=== PATIENT | male | born 1980 | race Hispanic/Latino ===

== ENCOUNTER 2024-03-14 18:25 | Emergency (ER) | payer MEDICARE, OTHER, SELFPAY ==
[2024-03-14 18:35] VITALS: BP 133/93
[2024-03-14 18:56] LABS: % Basophils 0.4 % (0-2); % Eosinophils 2.3 % (0-6); % Immature Granulocytes 0.5 % (0-0.5); % Monocytes 5.7 % (1.7-9.3); % Neutrophils 76.1 % (42.2-75.2); Absolute Basophils 0.1 10^3/uL (0-0.2); Absolute Eosinophils 0.4 10^3/uL (0-0.7); Absolute Immature Granulocytes 0.1 10^3/uL (0-0.05); Absolute Lymphocytes 2.4 10^3/uL (1.2-3.4); Absolute Monocytes 0.9 10^3/uL (0.1-0.6); Hematocrit 44.8 % (39.0-52.0); Hemoglobin 14.9 g/dL (13.0-18.0); Mean Corp Hgb Conc. 33.3 g/dL (33.0-37.0); Mean Corpuscular Hgb 25.7 pg (27.0-31.0); Mean Corpuscular Volume 77.2 fL (80.0-94.0); Mean Platelet Volume 8.7 fL (7.4-10.4); Nucleated Red Blood Cells % 0 % (-); Platelet Count 360 10^3/uL (130-400); Red Cell Dist. Width 14.1 % (11.5-14.5); White Blood Cell Count 15.7 10^3/uL (4.8-10.8)
[2024-03-14 19:21] LABS: ALT (SGPT) 31 U/L (0-50); AST (SGOT) 39 U/L (17-59); Albumin 4.4 g/dl (3.5-5.0); Alkaline Phosphatase 98 U/L (38-126); Blood Urea Nitrogen 14 mg/dl (9-20); Calcium 9.5 mg/dl (8.4-10.2); Carbon Dioxide 22 mmol/L (22-30); Chloride 103 mmol/L (98-107); Glucose 142 mg/dl (70-99); Lipase 141 U/L (23-300); Potassium 5.4 mmol/L (3.5-5.1); Sodium 140 mmol/L (135-145); Total Bilirubin 0.6 mg/dl (0.2-1.3); eGFR > 60.00
--- NOTE | 2024-03-14 20:02 | ED.GENMED ---
History of Present Illness
General
Chief Complaint: Abdominal Pain
Source: patient
Exam Limitations: none
Time Seen by Provider: 03/14/24 19:51
History of Present Illness
History of Present Illness:
See MDM
Past History
Past History
ED Past Medical History: Hypercholesterolemia and Other (Scleroderma )
ED Past Surgical History: Other (Left Lung transplant 2018)
Social History
Tobacco: Non-smoker
Alcohol: None
Phy Exam
Physical Exam
Physical Exam:
See MDM
Course
Orders/Labs/Results
Orders:
Orders
03/14/24 18:45
CT Abd/pel Without Iv Or Oral Urgent
Comment:
Reason For Exam: right flakn pain
CR Chest - 2 Views Urgent
Comment:
Reason For Exam: pain
03/14/24 18:47
CMP [Comprehensive Metabolic Panel] Urgent
Complete Blood Count/With Diff Urgent
Lipase Urgent
03/14/24 19:57
HYDROmorphone [Dilaudid] 1 mg IV NOW STA
Ondansetron Injectable [Zofran] 4 mg IV NOW STA
03/14/24 20:35
US Abdomen Limited Urgent
Comment:
Reason For Exam: RUQ pain
03/14/24 21:29
Amoxicillin 875 mg/Clav 125 mg [Augmentin 875 mg/125 mg] 1 tablet PO NOW STA
Doxycycline [Vibramycin] 100 mg PO NOW STA
Oxycodone/Acetaminophen [Percocet 5/325] 1 tablet PO NOW STA
Abnormal Lab Results
03/14/24
18:47
WBC 15.7 H 10^3/uL
(4.8-10.8)
MCV 77.2 L fL
(80.0-94.0)
MCH 25.7 L pg
(27.0-31.0)
Abs Immat Gran (auto) 0.1 H 10^3/uL
(0-0.05)
Absolute Neuts (auto) 12.0 H 10^3/uL
(1.4-6.5)
Absolute Monos (auto) 0.9 H 10^3/uL
(0.1-0.6)
Neutrophils % 76.1 H %
(42.2-75.2)
Lymphocytes % 15.0 L %
(20.5-51.1)
Potassium 5.4 H mmol/L
(3.5-5.1)
Glucose 142 H mg/dl
(70-99)
03/14/24 18:47
03/14/24 18:47
Vital Signs
Initial and Last Documented VS:
Initial Vital Signs
Temp Pulse Resp BP Pulse Ox
98.8 F 63 18 133/93 92
03/14/24 18:35 03/14/24 18:35 03/14/24 18:35 03/14/24 18:35 03/14/24 18:35
Last Documented Vital Signs
Temp Pulse Resp BP Pulse Ox
98.8 F 63 18 133/93 92
03/14/24 18:35 03/14/24 18:35 03/14/24 18:35 03/14/24 18:35 03/14/24 18:35
MDM/Problems Addressed
Differential Diagnosis Includes:
HPI and MDM Narrative:
43-year-old male presenting with right upper quadrant and right flank pain since the past 3 hours or so. This is associated with nausea and vomiting. Patient has a history of scleroderma and had a lung transplant in 2018. He is currently
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 Blood work is done prior to my evaluation. Patient found to be hyperglycemic and have leukocytosis. This is likely related to chronic steroids. On exam,
he does have right upper quadrant abdominal pain. CT was performed prior to my evaluation looking for evidence of kidney stone.
Physical exam
General: Uncomfortable
HEENT: protecting airway
Neck: appears supple
CV: No evidence of cyanosis
Resp: No accessory muscle use
Abd: Non-distended. Right upper quadrant tenderness
Extremities: No deformities
Neuro: alert
Psych: Normal affect
Skin: Intact
Problems Addressed including Acute and Chronic Conditions affecting care:
1. Abdominal pain
Acuity: acute
Prognosis: stable
Details: CT was additionally performed. If negative, will consider right upper quadrant ultrasound
2. Pneumonia
Acuity: acute
Prognosis: stable
Details: Potentially pneumonia versus pulmonary fibrosis. It is in the right lung which is the nontransplant lung. Will start antibiotics
Updates
CT consistent with right-sided kidney stone which explains his pain. Ultrasound was still performed to rule out any evidence of cholecystitis which was negative. Patient complains of worsening shortness of breath. Although chronic, chest x-ray
was performed. It appears to show a right sided moderate pneumonia but this could be in the setting of his pulmonary fibrosis. There are no prior to compare to. I discussed the case with his publications manager Dr. Weber. Given that is likely
chronic and in the nontransplant lung, it was shared decision making to start antibiotics and discharge.
Differential Diagnosis (but not limited to): Acute cholecystitis, symptomatic cholelithiasis, kidney stone, appendicitis
Testing considered: Urinalysis
Drug therapy (if applicable): OTC meds, please see d/c instruction regarding Rx drugs
Amount and/or Complexity of Data Reviewed
Clinical info obtained from: Patient
External data reviewed: N/A
Labs I independently reviewed (but not limited to): Leukocytosis and hyperglycemia
Radiology: X-ray independently reviewed: Chest x-ray shows atelectasis. Possible right-sided pneumonia
The CT scan was personally and independently reviewed. In addition, official CT report reviewed.
Pulse Ox: not hypoxic
EKG independently reviewed: N/A
Tower Erector: N/A
Critical Care: N/A
Risk of Complication:
Social Determinants of health: Good social support
Discussed with other providers: N/A
Escalation of Care includes Admit/Obs: After being observed in the Emergency Department, pt stable for discharge.
Occasional wrong word or 'sound a like' substitutions may have occurred due to the inherent limitations of voice recognition software. Read the chart carefully and recognize, using context, where substitutions have occurred.
*Critical Care Note
Total Time (30-74mins, 75-104mins- exclusive of procedures): Not Applicable
ED Attending Note
-
Portions of this chart may have been created with voice recognition software.� Occasional wrong word or��sound alike� substitutions may have occurred due to the inherent limitations of voice recognition software.
Discharge Plan
Departure
Patient Disposition: Home (Routine Discharge)
Date of Disposition: 03/14/24
Time of Disposition: 21:32
Patient with high blood pressure during this ER visit?: No
Discharge Problem:
Kidney stone on right side, Pneumonia
Instructions: Kidney Stone, Adult ED
Prescriptions:
New
doxycycline hyclate 100 mg capsule
100 mg PO BID Qty: 14 0RF
tamsulosin [Flomax] 0.4 mg Capsule
0.4 mg PO DAILY Qty: 14 0RF
diclofenac potassium 50 mg tablet
50 mg PO BID Qty: 20 0RF
ondansetron 4 mg Tablet,Disintegrating
4 mg PO BIDPRN PRN (Reason: nausea/vomiting) Qty: 10 0RF
amoxicillin-pot clavulanate 875-125 mg tablet
1 tab PO BID Qty: 14 0RF
oxycodone 5 mg tablet
5 mg PO Q8H PRN (Reason: Pain) Qty: 14 0RF
Activity Restrictions/Additional Instructions:
Please return for any worsening symptoms.
You may return at any time if you have further concerns.
Your pain is related to a kidney stone.
Your shortness of breath is related to a possible pneumonia.
Please follow up with your publications manager at the first available appointment, preferably this week.
You were given a prescription for narcotics. If you require this pain medicine, please take a daily [id number] stool softener to avoid constipation.
Thank you for choosing [facility].
Interventions
Interventions:
*Risk Screen - Suicide Last Done: 03/14/24 18:42
*Neglect/Abuse Screening Last Done: 03/14/24 18:42
*ED COVID-19 Vaccine History Last Done: 03/14/24 18:35
TN-Jlmvhg-Qztzssogqt Assessment Last Done: 03/14/24 21:16
Discharge Date and Time
Print Language: VINCENTIAN
[2024-03-14] MEDS: ZOFRAN 4 MG IV (20:09)
[2024-03-14] MEDS: DILAUDID 1 MG IV (20:09)
[2024-03-14] MEDS: VIBRAMYCIN 100 MG PO (21:36)
[2024-03-14] MEDS: AUGMENTIN 875 MG/125 MG 1 TABLET PO (21:36)
[2024-03-14] MEDS: PERCOCET 5/325 1 TABLET PO (21:36)
== END 2024-03-14 22:10 | disposition home or self-care (01) ==
LOC: EMR 18:25
PROVIDERS: Emergency Medicine; EMERGENCY PHYSICIAN Student in an Organized Health Care Education/Training Program; FAMILY PHYSICIAN Internal Medicine
DX: N20.0 Calculus of kidney (principal); J18.9 Pneumonia, unspecified organism; E78.00 Pure hypercholesterolemia, unspecified; M34.9 Systemic sclerosis, unspecified; T86.812 Lung transplant infection
CPT/HCPCS: 99284; 71046; 74176; 76705; 80053; 83690; 85025